=== PATIENT | female | born 1950 | race Caucasian/White ===

== ENCOUNTER → 2018-02-02 | Outpatient (CLI) | payer OTHER, BC ==
[~2018-02-02] MED LIST: ACETAMINOPHEN 325 MG TAB PO PRN; FLUMAZENIL 0.5 MG/5 ML MDV IVP PRN; GADOBUTROL 10 ML VIAL IVP ONE; MIDAZOLAM 2 MG/2 ML VIAL IVP PRN; MIDAZOLAM 2 MG/2 ML VIAL ONE; NALOXONE HCL 0.4 MG/ML INJ IVP PRN; NS 1,000 ML IV SCH; ONDANSETRON 4 MG/2 ML VIAL IVP ONE; ONDANSETRON 4 MG/2 ML VIAL IVP PRN; fentaNYL 100 MCG/2 ML INJ IVP PRN; fentaNYL 100 MCG/2 ML INJ ONE
[2018-02-02 14:33] VITALS: BP 166/75
== END ==
LOC: FIMAGING 10:49
PROVIDERS: ATTEND Neurological Surgery
DX: G20 Parkinson's disease (principal)
CPT/HCPCS: 70552; A9585; J2250; J2405; J3010; 82565-PO

== ENCOUNTER 2018-02-10 05:55 | Inpatient (IN) | payer OTHER, BC ==
--- NOTE | 2018-02-02 10:32 | GHP ---
DATE OF ADMISSION: 02/10/2018 HISTORY OF PRESENT ILLNESS: The patient is a 67-year-old female with Parkinson disease. She 1st noticed symptoms in 2007, and was diagnosed with Parkinson's in 2011. The symptoms began with a right hand tremor. She has tremor, bradykinesia, rigidity, freezing, balance difficulties, REM sleep disorder, orthostatic hypotension. She denies salivation and constipation. Her local neurologist is Dr. Herrera. PAST MEDICAL HISTORY: Parkinson disease. PAST SURGICAL HISTORY: No pertinent surgical history. SOCIAL HISTORY: Patient admits to 1 glass of wine daily. Denies tobacco use. She is with 2 children. She is retired. FAMILY HISTORY: No pertinent neurosurgical family history. ALLERGIES: No known drug allergies. HOME MEDICATIONS: Xanax, Wellbutrin, Sinemet CR, Neurontin, Myrbetriq, MiraLAX , midodrine, Imitrex, ibuprofen, estrogen, Effexor XR. PHYSICAL EXAMINATION: GENERAL: Patient seen, examined, appears in no apparent distress. Mood and affect appropriate. Alert and oriented. HEENT: Pupils equal and reactive. Extraocular movements are intact. Facial expression is symmetrical. Tongue is midline with protrusion. Hearing is grossly intact. Speech is without dysarthria. EXTREMITIES: Muscle strength is well preserved in upper and lower extremities at a 5/5, and sensation is intact to light touch. ASSESSMENT AND PLAN: The patient is a 67-year-old female with Parkinson disease. She had an MRI of the brain from [facility] in July 2017, that reveals microvascular ischemic changes. No acute intracranial findings. She had a neuropsychological evaluation on August 01, 2017, which stated that the patient is a suitable candidate for deep brain stimulation. We discussed the risks, benefits, and alternatives to the surgical intervention including the pre and postop expectations and procedure in great detail. The patient has had on-off testing. She has been deemed a suitable candidate to proceed with deep brain stimulation for Parkinson disease. We will proceed with bilateral DBS with initial placement of the left STN lead for right body first. The patient is agreeable to this treatment plan and has signed consents. All other questions and concerns were addressed and answered. /[id number]/MODL MTDD
[2018-02-10] MEDS ORDERED: CEFUROXIME 1,500 MG in NS 50 ML IV ONE ×2 (06:00→13:00)
[2018-02-10] MEDS ORDERED: LR 1,000 ML IV ONE (06:20)
[2018-02-10] MEDS ORDERED: CHLORHEXIDINE GLUC HIBICLENS 118 ML BTL TP ONE (06:48)
[2018-02-10] MEDS ORDERED: THROMBIN (BOVINE) 20,000 UNIT VIAL TP ONE (06:48)
[2018-02-10] MEDS ORDERED: BUPIVACAINE 0.25% 30 ML SDV ONE (06:48)
[2018-02-10] MEDS ORDERED: GENTAMICIN SULFATE 80 MG/2 ML VIAL ONE ×2 (06:48→12:43)
[2018-02-10] MEDS ORDERED: EPINEPHrine 1 MG/ML INJ ONE (06:49)
[2018-02-10] MEDS ORDERED: POVIDONE-IODINE 30 GM OINTTUBE TP ONE ×2 (06:49→07:38)
--- NOTE | 2018-02-10 07:08 | PDHPUP ---
History & Physical Update H&P update statement: This history and physical update is based on an assessment of the patient which was completed after admission or registration (within 24 hours), but prior to the surgery/procedure. H&P update: H&P reviewed & patient examined, changes noted H&P changes: Dr. Gonzalez discussed in detail with the patient regarding target for DBS. Discussed the pros and cons with a GPI and a STN target. Also had her neurologist involved on the discussion via the phone. Patient and family has decided to proceed with STN as the target.
--- NOTE | 2018-02-10 07:08 | PDANEPAE ---
ANE History of Present Illness 67 yo with parkinsons for DBS ANE Past Medical History - Cardiovascular History Hx Hypertension: No Hx Arrhythmias: No Hx Chest Pain: No Hx Coronary Artery / Peripheral Vascular Disease: No Hx CHF / Valvular Disease: No Hx Palpitations: No Cardiovascular History Comment: Hypotension; - Pulmonary History Hx COPD: No Hx Asthma/Reactive Airway Disease: No Hx Recent Upper Respiratory Infection: No Hx Oxygen in Use at Home: No Hx Sleep Apnea: No Sleep Apnea Screening Result - Last Documented: Negative - Neurologic History Hx Cerebrovascular Accident: No Hx Seizures: No Hx Dementia: No Neurologic History Comment: Parkinsons; - Endocrine History Hx Diabetes: No - Renal History Hx Renal Disorders: No - Liver History Hx Hepatic Disorders: No - Neurological & Psychiatric Hx Hx Neurological and Psychiatric Disorders: Yes Neurological / Psychiatric History Comment: depression; - Cancer History Hx Cancer: No - Congenital Disorder History Hx Congenital Disorders: No - GI History Hx Gastrointestinal Disorders: Yes Gastrointestinal History Comment: ulcerative colitis; recurrent constipation; - Other Health History Other Health History: dry skin; osteoporosis; - Chronic Pain History Chronic Pain: Yes (B Legs;) - Surgical History Prior Surgeries: L Hip; Cottonwood Teeth; ANE Review of Systems Review of systems is: negative Review of Systems: - Exercise capacity METS (RN): 4 METS ANE Patient History - Allergies Allergies/Adverse Reactions: No Known Allergies Allergy (Verified 01/19/18 15:53) - Home Medications Home Medications: Effexor Xr 75 mg PO DAILY 01/19/18 [Last Taken 02/01/18 22:00] Estrogen,Con/M-Progest Acet 0.5 tsp TD DAILY 01/19/18 [Last Taken 02/02/18 07:00 ] Hair, Skin and Nails Softgel 5,000 mcg PO DAILY 01/19/18 [Last Taken 01/28/18] Ibuprofen 200 mg PO QID PRN 01/19/18 [Last Taken 01/31/18] Imitrex 1 tab PO PRN PRN 01/19/18 [Last Taken 02/04/16] Midodrine HCl 5 mg PO TID 01/19/18 [Last Taken 02/02/18 09:00] Miralax 17 gm (*) 17 gm PO PRN 01/19/18 [Last Taken 01/30/18] Myrbetriq 25 mg PO DAILY 01/19/18 [Last Taken 02/01/18 17:00] Neurontin 600 mg PO TID 01/19/18 [Last Taken 02/01/18 20:00] Wellbutrin Sr 150 mg PO DAILY 01/19/18 [Last Taken 02/02/18 08:00] Xanax 0.5 mg PO PRN PRN 01/19/18 [Last Taken 01/30/18] Tylenol 325 mg PO PRN PRN 02/02/18 [Last Taken 02/02/18 07:00] Carbidopa 02/07/18 [Last Taken Unknown] Carbidopa-Levo 25-100 mg Odt 02/07/18 [Last Taken Unknown] - NPO status NPO Since - Liquids (Date): 02/09/18 NPO Since - Liquids (Time): 22:00 NPO Since - Solids (Date): 02/09/18 NPO Since - Solids (Time): 20:00 - Smoking Hx Smoking Status: Never smoked - Family Anes Hx Family Hx Anesthesia Complications: denies ANE Labs/Vital Signs - Vital Signs Height: 172.72 cm Weight: 57.153 kg ANE Physical Exam - Airway Neck exam: FROM Mallampati Score: Class 1 Mouth exam: normal dental/mouth exam - Pulmonary Pulmonary: no respiratory distress - Cardiovascular Cardiovascular: regular rate and rhythym - ASA Status ASA Status: III ANE Anesthesia Plan Anesthesia Plan: MAC
[2018-02-10] MEDS ORDERED: PROPOFOL 200 MG/20 ML VIAL ONE (07:14)
[2018-02-10] MEDS ORDERED: fentaNYL 100 MCG/2 ML INJ ONE ×2 (07:18→13:03)
[2018-02-10 07:19] LABS: INR 0.94 (0.83-1.16); PROTIME(PATIENT) 12.8 SEC (12.0-15.0)
[2018-02-10 07:26] LABS: PLATELET COUNT 255 10^3/uL (150-400)
[2018-02-10] MEDS ORDERED: DEXMEDETOMIDINE HCL 400 MCG in NS 100 ML IV SCH (07:30)
[2018-02-10] MEDS ORDERED: niCARdipine/NACL/200 ML BAG IV ONE (07:38)
[2018-02-10] MEDS ORDERED: PROMETHAZINE HCL 25 MG/ML INJ IVP PRN (13:15)
[2018-02-10] MEDS ORDERED: ONDANSETRON 4 MG/2 ML VIAL IVP PRN ×2 (13:15→13:40)
[2018-02-10] MEDS ORDERED: NALOXONE HCL 0.4 MG/ML INJ IVP PRN (13:15)
[2018-02-10] MEDS ORDERED: fentaNYL 100 MCG/2 ML INJ IVP PRN (13:15)
[2018-02-10] MEDS ORDERED: BISACODYL 10 MG SUPP PR PRN (13:40)
[2018-02-10] MEDS ORDERED: ONDANSETRON DISINTEGRATING 4 MG TAB PO PRN (13:40)
[2018-02-10] MEDS ORDERED: diphenhydrAMINE 25 MG CAP PO PRN (13:40)
[2018-02-10] MEDS ORDERED: MAGNESIUM HYDROXIDE 30 ML UDCUP PO PRN (13:40)
[2018-02-10] MEDS ORDERED: POLYETHYLENE GLYCOL 3350 17 GM PKT PO PRN ×2 (13:40→17:57)
[2018-02-10] MEDS ORDERED: LACTULOSE 20 GM/30 ML UDCUP PO PRN (13:40)
[2018-02-10] MEDS ORDERED: NS 1,000 ML IV SCH (13:45)
--- NOTE | 2018-02-10 13:46 | POSTOPPROG ---
Post Op Note Date of Operation: 02/10/18 Surgeon: Jory Gonzalez Recycling Operator: Tasha Renee PA-C Anesthesia: GET(General Endotracheal) Pre-op Diagnosis: Parkinson's Post-op Diagnosis: Parkinson's Procedure: Left DBS STN lead placement Inf/Abcess present in the surg proc area at time of surgery?: No Depth: Superfical (Skin SQ) EBL: Minimal Plan Plan: 67 yo female s/p left STN DBS lead placement - neuro checks - pain control - PT/OT - advance diet as tolerated - maintain SBP < 140 - postop head CT stable - if head CT stable then transfer to the floor Awake. Alert Following commands Incision with dressing c/d/i
--- NOTE | 2018-02-10 14:05 | GOP ---
DATE OF OPERATION: SURGEON: Jory Gonzalez DO NEUROSURGEON: Jory Gonzalez DO. LONG CHAIN DYEING MACHINE OPERATOR: Michael NGO PREOPERATIVE DIAGNOSIS: Parkinson's disease. POSTOPERATIVE DIAGNOSIS: Parkinson's disease. PROCEDURE PERFORMED: 1. Right deep brain stimulator lead placement with Medtronic [id number] lead to the subthalamic nucleus. 2. Stealth neuronavigation microelectrode recording by JENI Griffith. Please refer to her dictation for microelectrode recording. FINDINGS: SPECIMENS: None. ESTIMATED BLOOD LOSS: 45 mL. INDICATIONS: This is a 67-year-old female with Parkinson's disease who was found to be a good candidate for DBS. She elected to move forward with an STN. She was offered GPI and STN. She elected to move forward with the STN implant. DESCRIPTION OF PROCEDURE: She was identified, consented. Sites were marked, brought to the operating room, anesthetized with local. Hair was clipped with the OR clippers. Skull was cleansed with ChloraPrep using povidone iodine on the pin sites. A Leksell frame was placed stereotactically after anesthetizing with 0.25% Marcaine with epinephrine. The localizer box was placed, and a stealth O-arm to CT was performed fused to the preoperative plan in the [employer] Framelink software. The ACPC distance was 30.13. The X was -11.01, Y of -3.02 , Z of 5.15. The entry point X was -42.14, Y of 32.13, Z of 68.43, corresponding to 26.2 degrees off midsagittal, 61 degrees off midaxial. This corresponded to Leksell frame coordinates of an X of 113, a Y of 92, a Z of 101 , a ring of 55 degrees, and arc of 110.8 degrees. We elected to do a center and anterior tract in this patient. The Leksell frame coordinates were set and triple checked by all providers in the room. She was prepped and draped in the usual sterile fashion. Incision site was marked using Leksell frame coordinates and the cannula, and a half-riley incision was anesthetized with 0.25 % Marcaine with epinephrine. Incision was made with a 10 blade. Hemostasis was obtained with bipolar and Anamaria clips. We used a periosteal elevator to elevate the periosteum. We then marked the bone opening, used the cannula and performed a elevator pilot hole then a 14 mm bur hole, which was verified to be in the appropriate position. Bone edges were waxed. The Stealth Navigus Stimloc device was placed and locked into place with 5 mm Synthes screws. The clipping mechanism was verified to clip and lock. The dura was coagulated and then opened with an 11 blade. We then inserted the center and anterior cannula, plugged the hole with Gelfoam and DuraSeal, and removed the cannula. Internal cannula was then placed with microelectrodes to perform microelectrode recording of the best recording. A PA assist was utilized during this procedure particular during JOSE as there is need for a single provider scrubbed and a single provider performing JOSE resting on the non-sterile field. Again, please refer to the JOSE dictation by Camille Renee of the best recording. The anterior track with some motor driving. We macro stemmed and got no side effects and some therapeutic effect. Elected to place the lead here. We got out of the STN at approximately 1 above target and so elected to place the bottom of the bottom contact at 1 above target. We then tested impedances at all 4 contacts and then tested for side effects as well therapeutic benefit. We got low to no side effects at all contacts. Therapeutic benefit was excellent at contact 2 and contact 1 at approximately 2 V, and so we elected to leave the lead here. We took an x-ray with the bomb sites and placement and performed a stereotactic spin with the Stealth, merged it and indeed our lead ended up approximately 1 to 1.5 mm anterior exactly where we would expect it to be to within 0.5 mm of accuracy. We then retracted the cannulas. Placed the Stimloc and locked the Stimloc, marked the lead, brought the internal stylet out , brought the lead down and out, placed it into the groove, placed the cap over the lead, took another x-ray. The lead had not migrated. We then placed the boot over the lead extension complex, placed extension over the lead extension complex, locked into place with the torque wrench protecting each contact, brought the boot over the lead extension complex, tied it in position with 2-0 silk ties at 2 positions, tunneled posterior with periosteal elevator, anesthetized the stab incision with 0.25% Marcaine with epinephrine. We made a stab incision with an 11 blade and then tunneled posterior to anterior, bringing the lead extension down and out, cutting it at the skin, coiling the lead posterior and around the incision. We took another x-ray. It had not migrated. Copiously irrigated with over a liter of gentamicin-infused saline. Closed the galea with 0 Vicryl pop-offs. The skin was closed with 3-0 running nylon. The wound was dressed with Xeroform and Telfa stapled down. The frame was removed. Head was wrapped, and the patient tolerated procedure well. Again , no complications. FLUIDS: 1500 mL of crystalloid. URINE OUTPUT: Not recorded. DRAINS: None. COMPLICATIONS: None. /[id number]/MODL MTDD
--- NOTE | 2018-02-10 14:20 | GPN ---
DATE OF PROCEDURE: 02/10/2018 PREPROCEDURE DIAGNOSIS: Parkinson disease. POSTPROCEDURE DIAGNOSIS: Parkinson disease. PROCEDURE PERFORMED: Intraoperative functional subcortical mapping by microelectrode recording and s timulation. COMPLICATIONS: None. INDICATIONS FOR PROCEDURE: Determination of optimal electrode lead placement for deep brain stimulat ion therapy for Parkinson disease to the STN. DESCRIPTION OF PROCEDURE: Following the incision on the left, a bur-hole was drilled. The arc was t hen arranged with the following coordinates X 113, Y 92, Z 101, ring 55, arc 110.8. The recording mi croelectrode was then slowly advanced into the brain using a central and anterior tract. There was e vidence of cell bursts above target in both tracts at 10 above and 8.7 in the anterior tract and 7.9 in the center tract. There was evidence of entering the STN at 6.9 above target for the anterior tra ct. There was change in stimulation with extension of the elbow at 3.3 above target and we exited ST N at 1 above target. There was questionable STN activity in the center tract at 4-1/2 above target. We elected to proceed with macrostimulation using the anterior tract and stimulating at 3.3 above ta rget. With stimulation up to 4.0, there was no side effects and there was improved slowness with ope danita and closing her fist. We then elected to proceed with placement of the lead in the anterior tra ct with placing the bottom of the lead at 1 above target. With test stimulation at 0- patient had no side effects up to 3.5 with minimal improvement in Parkinson's symptoms. At 1- patient had no side effects up to 3.5 with improved bradykinesias, at 2- patient had no side effects up to 3.5 with impro crystal bradykinesia starting at 2.0, amplitude, at 3- patient had no side effects up to 3.5 with questio nable tingling in her right leg from knee to ankle at 3.0 amplitude. With these recordings and test stimulation obtained, we elected to place the lead in this location with the anterior tract with the bottom of the lead at 1 above target. The patient tolerated the surgery well and was transferred to the floor for further observation and pain control. /[id number]/MODL
[2018-02-10] MEDS ORDERED: DEXMEDETOMIDINE HCL 400 MCG in NS 100 ML IV ONE (14:30)
--- NOTE | 2018-02-10 15:28 | PDMN ---
Medical Necessity Medical necessity: Mcare IP only surgery; cpt 22578 Implantation of Neurostimulator (R Deep Brain Stimulator Lead Placement)
[2018-02-10] MEDS: CEFUROXIME 1,500 MG in NS 50 ML IV SCH ×2 (15:47→21:33)
[2018-02-10] MEDS: ACETAMINOPHEN 325 MG TAB PO PRN (15:50)
--- NOTE | 2018-02-10 17:37 | POSTANESTH ---
Post Anesthetic Evaluation Cardiovascular Status: Normal, Stable Respiratory Status: Normal, Stable Level of Consciousness/Mental Status: Can Participate in Eval, Mildly Sleepy, Arousable Pain Control: Adequate, Prn Tx Ordered Nausea/Vomiting Control: Adequate, Prn Tx Ordered Complications Possibly Related to Anesthesia: None Noted
[2018-02-10] MEDS ORDERED: ALPRAZolam 0.5 MG TAB PO PRN (17:57)
[2018-02-10] MEDS ORDERED: DOCUSATE SODIUM 100 MG CAP PO PRN (17:57)
[2018-02-10] MEDS ORDERED: SUMAtriptan 25 MG TAB PO PRN (17:57)
[2018-02-10] MEDS ORDERED: NON-FORMULARY NEW DRUG (Mirabegron [Myrbetriq] 25 MG) PO SCH (18:00)
[2018-02-10] MEDS ORDERED: CARBIDOPA/LEVODOPA 25 MG/100 MG TAB PO SCH (18:00)
[2018-02-10] MEDS: GABAPENTIN 100 MG CAP PO SCH (18:45)
[2018-02-10] MEDS: HYDROCODONE/APAP 5/325 TAB PO PRN ×2 (18:47→23:09)
[2018-02-10] MEDS: CARBIDOPA 25 MG PO SCH (18:49)
[2018-02-10] MEDS: MIDODRINE HCL 5 MG TAB PO SCH (18:50)
[2018-02-10] MEDS ORDERED: VENLAFAXINE XR 75 MG CAP PO SCH (21:00)
[2018-02-10] MEDS: SENNOSIDES/DOCUSATE SODIUM TAB PO SCH (21:21)
[2018-02-10] MEDS: hydrALAZINE 20 MG/ML VIAL IVP PRN (21:26)
[2018-02-10] MEDS: LABETALOL HCL 5 MG/ML 20 ML MDV IV PRN (22:51)
[2018-02-11] MEDS: HYDROCODONE/APAP 5/325 TAB PO PRN ×2 (03:26→11:41)
[2018-02-11] MEDS: hydrALAZINE 20 MG/ML VIAL IVP PRN (03:28)
[2018-02-11] MEDS: LABETALOL HCL 5 MG/ML 20 ML MDV IV PRN ×2 (05:21→06:35)
[2018-02-11] MEDS: ACETAMINOPHEN 325 MG TAB PO PRN (05:36)
[2018-02-11] MEDS ORDERED: buPROPion SR 150 MG TAB PO SCH (09:00)
[2018-02-11] MEDS: SENNOSIDES/DOCUSATE SODIUM TAB PO SCH (09:05)
[2018-02-11] MEDS: CARBIDOPA/LEVODOPA 25 MG/100 MG TAB PO SCH ×2 (09:06→13:10)
[2018-02-11] MEDS: CARBIDOPA 25 MG PO SCH ×2 (09:09→13:10)
--- NOTE | 2018-02-11 10:42 | SOAPPROG ---
SOAP Progress Note Assessment/Plan: Assessment: POD #1 sp left DBS placement Doing well this AM Post op CTH stable without hemorrhage Plan: Hold Midodrine this AM due to hypertension overnight. Continue to recheck manually and will restart Midodrine if she becomes hypotensive. CPM this AM with PT/OT Observe until 1200 and if BP and pain controlled will DC to home with Keep Head wrap in place and remove per DC instructions. 02/11/18 10:49 Subjective: sitting at EOB, doing well this AM with no new issues. She slept poorly last night due to STACY and elevated BP. She states she takes Midodrine to keep her BP up due to her history of orthostatic hypotension. Objective: Vital Signs Temp Pulse Resp BP Pulse Ox 36.8 C 78 14 118/68 91 L 02/11/18 08:00 02/11/18 08:00 02/11/18 08:00 02/11/18 08:00 02/11/18 08:00 Laboratory Results 02/10/18 06:30 02/10/18 06:30 02/10/18 02/11/18 02/12/18 05:59 05:59 05:59 Intake Total 2232 Output Total 1460 200 Balance 772 -200 PT 12.8 SEC (12.0-15.0) 02/10/18 06:30 INR 0.94 (0.83-1.16) 02/10/18 06:30 Neuro: A+ox 4 follows commands, Speech clear, EOMI, PERRLA ambulatory Dressing: CDI ICD10 Worksheet Patient Problems: Problems Problem Status Onset Parkinson disease Acute - ICD10 Problem Qualifiers (1) Parkinson disease
--- NOTE | 2018-02-11 11:00 | ASDISCHSUM ---
Discharge Information Plan Status:Home with No Needs Medically Cleared to Leave: Discharge Date: CM D/C Disposition:Home, Routine, Self-Care ADT D/C Disposition:Home, Routine, Self-Care Projected Discharge Date: Transportation at D/C: Discharge Delay Reason: Follow-Up Date: Discharge Slot: Final Diagnosis: Placement Information Patient Contact Information Contact Name:ZACARIAS Relationship: Address:[address] Work Phone: City:[facility] Phone: State/Zip Code:[place] [address] Email: Financial Information Financial Class:Medicare Primary Plan Desc:MEDICARE INPATIENT Primary Plan Number:[id number] Secondary Plan Desc:BC OUT OF STATE [facility] Secondary Plan Number:[id number] Assessment Information LACE LACE Length of stay for Answers: Less than 1 day current admission Acuity / Level of Answers: Yes Care: Did the patient have an inpatient admission? Comorbidities - select Answers: Other Notes: Parkinsons all that apply # of Emergency department Answers: 0 visits in the last 6 months Score: 4 Date Signed: 02/11/2018 10:58 AM Electronically Signed By:Mary Swann Intervention Information
[2018-02-11 11:30] VITALS: BP 138/72
[2018-02-11] MEDS: MIDODRINE HCL 5 MG TAB PO SCH (13:08)
[2018-02-11] MEDS: GABAPENTIN 100 MG CAP PO SCH (13:11)
[2018-02-13] MEDS ORDERED: ENOXAPARIN 40 MG/0.4 ML SYR SC SCH (09:00)
--- NOTE | 2018-02-16 09:51 | GDS ---
ADMISSION DIAGNOSIS: Parkinson disease. DISCHARGE DIAGNOSIS: Parkinson disease. PROCEDURE: Right deep brain stimulator lead placement to the STN. HOSPITAL COURSE: The patient is a 67-year-old female with Parkinson disease who was found to be a go od candidate for deep brain stimulation. She underwent surgery on February 10, 2018, by Dr. Jory sanders with placement of right deep brain stimulator lead to the STN. The patient tolerated the surgery well without complication and was transferred to the floor for further observation and pain control. Postoperative head CT was completed and demonstrated no acute intracranial hemorrhage. The followi ng day, she was seen by Physical and Occupational Therapy. Once she was tolerating a diet, voiding w ithout difficulty, medically stable, and pain controlled, she was deemed suitable for discharge. She was discharged to home on February 11, 2018. DISCHARGE INSTRUCTIONS: Patient was asked to follow up with Dr. Jory Gonzalez in 2 weeks for suture r emoval and wound check. She is to refrain from strenuous activity and lifting more than 10 pounds. She is cleared to shower and get the incision wet with soap and water 3 days from surgery. She was i nstructed to take Tylenol as needed for pain relief. /[id number]/MODL
== END 2018-02-11 13:28 | disposition home or self-care (01) | DRG 27 ==
LOC: F3N 05:55
PROVIDERS: ADMIT Neurological Surgery; ATTEND Neurological Surgery
PROC: 8E09XBZ Computer Assisted Procedure of Head and Neck Region (ICD-10-PCS; principal; 2018-02-10 07:15)
PROC: 00H00MZ Insertion of Neurostimulator Lead into Brain, Open Approach (ICD-10-PCS; principal; 2018-02-10 07:15)
DX: G20 Parkinson's disease (principal)
CPT/HCPCS: 97161-GP; 97165-GO; C1713; G8978-GP-CI; G8979-GP-CI; G8980-GP-CI; G8987-GO-CI; G8988-GO-CI; G8989-GO-CI; J0171; J0360; J0697; J1580; J2270; J2405; J2704; J3010

== ENCOUNTER 2018-03-10 06:21 | Inpatient (IN) | payer OTHER, BC ==
[~2018-03-10 06:21] MED LIST changes: -ACETAMINOPHEN 325 MG TAB PO PRN; +CEFUROXIME 1,500 MG in NS 50 ML IV ONE; -FLUMAZENIL 0.5 MG/5 ML MDV IVP PRN; -GADOBUTROL 10 ML VIAL IVP ONE; -MIDAZOLAM 2 MG/2 ML VIAL IVP PRN; -MIDAZOLAM 2 MG/2 ML VIAL ONE; -NALOXONE HCL 0.4 MG/ML INJ IVP PRN; -NS 1,000 ML IV SCH; -ONDANSETRON 4 MG/2 ML VIAL IVP ONE; -ONDANSETRON 4 MG/2 ML VIAL IVP PRN; -fentaNYL 100 MCG/2 ML INJ IVP PRN; -fentaNYL 100 MCG/2 ML INJ ONE
[2018-03-10] MEDS ORDERED: CHLORHEXIDINE GLUC HIBICLENS 118 ML BTL TP ONE (06:34)
[2018-03-10] MEDS ORDERED: BUPIVACAINE 0.25% 30 ML SDV ONE (06:34)
[2018-03-10] MEDS ORDERED: EPINEPHrine 1 MG/ML INJ ONE (06:34)
[2018-03-10] MEDS ORDERED: THROMBIN (BOVINE) 20,000 UNIT SPRAY TP ONE (06:34)
[2018-03-10] MEDS ORDERED: POVIDONE-IODINE 30 GM OINTTUBE TP ONE (06:34)
[2018-03-10] MEDS ORDERED: GENTAMICIN SULFATE 80 MG/2 ML VIAL ONE (06:34)
[2018-03-10] MEDS ORDERED: LR 1,000 ML IV ONE (07:22)
--- NOTE | 2018-03-10 07:57 | PDHPUP ---
History & Physical Update H&P update statement: This history and physical update is based on an assessment of the patient which was completed after admission or registration (within 24 hours), but prior to the surgery/procedure. H&P update: H&P reviewed & patient examined, no change in patient's condition since H&P completed
--- NOTE | 2018-03-10 08:14 | PDANEPAE ---
ANE History of Present Illness parkinsons dz for DBS stage 1 ANE Past Medical History - Cardiovascular History Hx Hypertension: No Hx Arrhythmias: No Hx Chest Pain: No Hx Coronary Artery / Peripheral Vascular Disease: No Hx CHF / Valvular Disease: No Hx Palpitations: No Cardiovascular History Comment: neurogenic hypotension - Pulmonary History Hx COPD: No Hx Asthma/Reactive Airway Disease: No Hx Recent Upper Respiratory Infection: No Hx Oxygen in Use at Home: No Hx Sleep Apnea: No Sleep Apnea Screening Result - Last Documented: Negative - Neurologic History Hx Cerebrovascular Accident: No Hx Seizures: No Hx Dementia: No Neurologic History Comment: parkinson's disease. bilateral leg neuropathy. multilevel spondylosis - Endocrine History Hx Diabetes: No Obesity: no - Renal History Hx Renal Disorders: No - Liver History Hx Hepatic Disorders: No - Neurological & Psychiatric Hx Hx Neurological and Psychiatric Disorders: Yes Neurological / Psychiatric History Comment: depression - Cancer History Hx Cancer: No - Congenital Disorder History Hx Congenital Disorders: No - GI History Hx Gastrointestinal Disorders: Yes Gastrointestinal History Comment: constipation - Other Health History Other Health History: wears glasses - Chronic Pain History Chronic Pain: Yes (bilat legs) - Surgical History Prior Surgeries: left hip fracture repair ANE Review of Systems Review of Systems: - Exercise capacity METS (RN): 4 METS ANE Patient History - Allergies Allergies/Adverse Reactions: No Known Allergies Allergy (Verified 01/19/18 15:53) - Home Medications Home medications: home medication list seen and reviewed Home Medications: ALPRAZolam [Xanax 0.5 MG (*)] 0.5 mg PO DAILY PRN 02/10/18 [Last Taken Unknown] Carbidopa 25 mg PO TID@02/10/18 [Last Taken 03/09/18] Carbidopa/Levodopa [Carbidopa-Levodopa 25-100 Tab] 1 each PO DAILY@18 02/10/18 [ Last Taken 03/09/18] Carbidopa/Levodopa [Carbidopa-Levodopa 25-100 Tab] 2.5 each PO BID@ [Last Taken 03/09/181999] Docusate Sodium [Colace 100 MG (*)] 100 mg PO DAILY PRN 02/10/18 [Last Taken Unknown] Estrogen/Progesterone Cream 1 pankaj TP DAILY 02/10/18 [Last Taken 03/09/18] Gabapentin [Neurontin 100 MG (*)] 300 mg PO QID 02/10/18 [Last Taken 03/09/18 20 :00] Midodrine HCl 5 mg PO TID@,,02/10/18 [Last Taken 03/09/18] Mirabegron [Myrbetriq] 25 mg PO DAILY@18 02/10/18 [Last Taken 03/09/18] Polyethylene Glycol 3350 [Miralax 17 gm (*)] 17 gm PO DAILY PRN 02/10/18 [Last Taken 03/09/18] SUMAtriptan [Imitrex 25 MG (*)] 25 mg PO DAILY PRN 02/10/18 [Last Taken Unknown] Venlafaxine Xr [Effexor Xr 75MG (*)] 75 mg PO HS 02/10/18 [Last Taken 03/09/18] buPROPion SR [Wellbutrin 150mg SR (*)] 150 mg PO DAILY 02/10/18 [Last Taken 12/17] - NPO status NPO Since - Liquids (Date): 03/09/18 NPO Since - Liquids (Time): 21:00 NPO Since - Solids (Date): 03/09/18 NPO Since - Solids (Time): 18:00 - Anes Hx Anes Hx: no prior problems - Smoking Hx Smoking Status: Never smoked - Family Anes Hx Family Hx Anesthesia Complications: none ANE Labs/Vital Signs - Vital Signs Blood Pressure: 184/97 Heart Rate: 72 Respiratory Rate: 16 O2 Sat (%): 96 Height: 172.72 cm Weight: 57.153 kg ANE Physical Exam - Airway Neck exam: FROM Mallampati Score: Class 2 Mouth exam: normal dental/mouth exam - Pulmonary Pulmonary: no respiratory distress - Cardiovascular Cardiovascular: regular rate and rhythym - ASA Status ASA Status: III ANE Anesthesia Plan Anesthesia Plan: MAC
--- NOTE | 2018-03-10 10:29 | POSTANESTH ---
Post Anesthetic Evaluation Cardiovascular Status: Normal, Stable Respiratory Status: Normal, Stable Level of Consciousness/Mental Status: Can Participate in Eval, Alert and Oriented Pain Control: Adequate, Prn Tx Ordered Nausea/Vomiting Control: Adequate, Prn Tx Ordered Complications Possibly Related to Anesthesia: None Noted
[2018-03-10] MEDS ORDERED: ONDANSETRON 4 MG/2 ML VIAL IVP PRN ×2 (11:19→11:43)
[2018-03-10] MEDS ORDERED: HYDROCODONE/APAP 5/325 TAB PO PRN (11:19)
[2018-03-10] MEDS ORDERED: ALBUTEROL 3 ML DEYVIAL IH PRN (11:19)
[2018-03-10] MEDS ORDERED: LR 500 ML IV PRN (11:19)
[2018-03-10] MEDS ORDERED: fentaNYL 100 MCG/2 ML INJ IVP PRN (11:19)
[2018-03-10] MEDS ORDERED: oxyCODONE IR 5 MG TAB PO PRN (11:19)
[2018-03-10] MEDS ORDERED: ACETAMINOPHEN 500 MG TAB PO PRN (11:19)
[2018-03-10] MEDS ORDERED: NALOXONE HCL 0.4 MG/ML INJ IVP PRN (11:19)
[2018-03-10] MEDS ORDERED: ALPRAZolam 0.5 MG TAB PO PRN (11:41)
[2018-03-10] MEDS ORDERED: POLYETHYLENE GLYCOL 3350 17 GM PKT PO PRN (11:41)
[2018-03-10] MEDS ORDERED: DOCUSATE SODIUM 100 MG CAP PO PRN (11:41)
[2018-03-10] MEDS ORDERED: ACETAMINOPHEN 325 MG TAB PO PRN (11:43)
[2018-03-10] MEDS ORDERED: LACTULOSE 20 GM/30 ML UDCUP PO PRN (11:43)
[2018-03-10] MEDS ORDERED: BISACODYL 10 MG SUPP PR PRN (11:43)
[2018-03-10] MEDS ORDERED: MAGNESIUM HYDROXIDE 30 ML UDCUP PO PRN (11:43)
[2018-03-10] MEDS ORDERED: NS W/ 20 KCl/L 1,000 ML IV SCH (11:45)
--- NOTE | 2018-03-10 11:49 | POSTOPPROG ---
Post Op Note Date of Operation: 03/10/18 Surgeon: Jory Gonzalez Passenger Service Supervisor: Tasha Renee PA-C Anesthesia: IV Sedation, Local (Specify) Pre-op Diagnosis: Parkinson's Post-op Diagnosis: Parkinson's Procedure: Right STN DBS lead placement Inf/Abcess present in the surg proc area at time of surgery?: No Depth: Deep Incisional (Fascial) EBL: Minimal Plan Plan: 67 yo female s/p right STN DBS lead placement - neuro checks - maintain SBP < 140 - postop head CT pending - PT/OT - pain control - to floor if head CT stable - plan for home tomorrow Exam Seen in recovery. PERRL. EOMI Following commands Strength full Incision c/d/i
--- NOTE | 2018-03-10 12:33 | GPN ---
DATE OF PROCEDURE: 03/10/2018 PREPROCEDURE DIAGNOSIS: Parkinson disease. POSTPROCEDURE DIAGNOSIS: Parkinson disease. PROCEDURE PERFORMED: Intraoperative functional subcortical mapping by microelectrode recording and s timulation. COMPLICATIONS: None. INDICATIONS FOR PROCEDURE: Determination of optimal electrode lead placement for deep brain stimulat ion therapy for Parkinson disease to the STN. DESCRIPTION OF PROCEDURE: Following the incision on the right a bur hole was drilled. The arc was t hen arranged with the following coordinates: X 92, Y 102, Z 106.5, ring 57, arc 64.7. The recording microelectrode was then slowly advanced into the brain using a central tract. There was evidence of cell bursts above target at 10 and 14. There was evidence of entering STN at 4.8 above target. We found the recording at this tract to be weak and thus proceeded with further microelectrode mapping w ith a lateral and posterior tract. There was evidence of entering the STN in the posterior tract nadege und 5 above target and exiting around 3 below target. We elected to proceed with macro stimulation. At 3 above target, patient had no side effects up to 5.0 with no improvement and bradykinesias. At target, patient had no side effects up to 5.0 with some improvement in her symptoms. At 2.5 below ta rget, patient had no side effects up to 5.0 with marked improvement and bradykinesias. With this mac ro stimulation, we elected to proceed with test stimulation and placed the lead in the posterior trac t at 3 below target. At 0-, she had no side effects up to 3.5, and possible questionable improvement in her rapid hand movements. At 1-, patient had no side effects up to 3.5, and had marked improveme nt in her hand movements and bradykinesia at 2.0 amplitude. At 2- and 3-, patient had no side effect s up to 3.5. With these recordings and test stimulation obtained, we elected to place the lead in th is location at the posterior tract with the bottom of the lead at 3 below target. The patient tolera nikita the surgery well and was transferred to the floor for further neurological checks and pain contro l. /[id number]/MODL
--- NOTE | 2018-03-10 12:43 | GOP ---
DATE OF OPERATION: SURGEON: Jory Gonzalez DO NEUROSURGEON: Jory Gonzalez DO. TOILET PRODUCTS MOLDER: Camille Renee PA-C. PREOPERATIVE DIAGNOSIS: Parkinson disease. POSTOPERATIVE DIAGNOSIS: Parkinson disease. PROCEDURE PERFORMED: 1. Right deep brain stimulator lead placement to the subthalamic nucleus. 2. Neuronavigation. FINDINGS: SPECIMENS: None. ESTIMATED BLOOD LOSS: 30 mL. INDICATIONS: This is a 67-year-old female with a left-sided deep brain stimulator lead placed to the STN approximately 1 month ago, returning for the right-sided STN placement. DESCRIPTION OF PROCEDURE: She was identified, consented. Sites were marked. Brought to the operati ng room. Anesthetized under local. Hair was clipped with the OR clippers. Skin was cleansed with C hloraPrep. We anesthetized the pin sites with 0.25% Marcaine with epinephrine using povidone iodine on the pin sites. We placed the Leksell frame stereotactically, then performed a stereotactic spin w ith a localizer box, merged this as the registration to the Stealth and mirrored the lead on the othe r side. On direct targeting, it looked as if maybe the STN was a little bit posterior to this; howev er, the imaging was suboptimal there and so we elected to mirror and run a single tract. The initial target was an X of 9.85, a Y of 0.17, a Z of 6.61, an AC-PC distance of 30.13, an entry point of 42. 33, XY of 36.04, Z of 65.86. This corresponded to 28.7 degrees off mid sagittal and 58.8 degrees off mid axial. This corresponded to Leksell frame coordinates of an X of 92, a Y of 102, a Z of 106.5, a ring of 57 degrees, an arc of 64.7 degrees. These were all set and triple checked by the providers in the room after having been prepped and draped in the usual sterile fashion. Incision site was ma rked using the cannula. A half-riley incision was anesthetized with 0.5% Marcaine with epinephrine. Incision was made with a 10 blade. Periosteal elevator was used to elevate the periosteum using the Anamaria clips. We then obtained hemostasis. We then marked the bone incision, created a furnace utility operator hole an d then a 14 mm silvina hole. The bone edges were waxed. The Navigus was locked down with 5 mm Synthes screws, and the clipping mechanism was verified to clip and lock. The dura was opened sharply with a n 11 blade and coagulated with the bipolar, and then we inserted the cannula, placed Gelfoam and Dura Seal, placed a microelectrode, performed microelectrode recording. We did not get robust recordings here, and I elected to do a lateral and posterior tract. Please refer to JOSE dictation by Camille Renee PA-C. We drove back up to the top. We removed the Gelfoam and DuraSeal, placed the stylet in the center cannula, leaving it in place, placed the posterior cannula, removed the internal stylet, plugged the hole with Gelfoam and DuraSeal, placed microelectrodes in the latera l posterior and performed microelectrode recording. We got STN in both of these sites; however, the posterior seemed to be the best. We had difficulty with motor driving. This was similar to the othe r side. We macro-stimmed at target 2.5 blow and got excellent effects with no side effects at the po sterior tract, so elected to test the lead here, leaving the bottom contact at 3 below targ et. This is what we expected based upon direct targeting, it should be mentioned. We then tested ea ch contact. We got excellent control, contact being contact 1, no side effects at all. W e elected to leave the lead here. We retracted the cannula, clipped and locked the locking mechanism , marked the lead, took an x-ray with the [facility] sites, performed a stereotactic spin to [facility], and the merge appeared that it was exactly where we would expect it to be. We then brought the stylet out, brought the lead down and out of the cannula, placed it into the Navigus, locked the cap, took anothe r x-ray. It had not migrated. Placed the boot over the lead extension complex, placed the lead exte nsion over and locked them into place with the torque wrench, protecting each contact. Brought the b oot back over the lead extension complex, tied it in position with 2-0 silk ties at 2 positions. Michael neled posteriorly with a periosteal elevator, anesthetized the stab incision posteriorly with 0.5% Ma rcaine with epinephrine. A stab incision was made with an 11 blade, tunneled posterior to anterior, brought the lead extension down and out, cutting it at the skin, coiling the lead posterior and aroun d the incision. Took a final x-ray with the bomb sites in place. It had not migrated. Copiously ir rigated with over a liter of gentamicin-infused saline. Closed the galea with 2-0 Vicryl pop-offs, t he skin with a 3-0 running nylon. Wound was dressed with Xeroform and Telfa stapled down. The frame was removed. Head was placed in a gauze head of sales. Patient tolerated procedure well. No complic ations. FLUIDS: 600 mL crystalloid. URINE OUTPUT: Not recorded. DRAINS: None. COMPLICATIONS: None. /[id number]/MODL
[2018-03-10] MEDS ORDERED: CEFUROXIME 1,500 MG in NS 50 ML IV SCH (14:00)
[2018-03-10] MEDS: HYDROCODONE/APAP 5/325 TAB PO PRN ×3 (14:44→23:36)
[2018-03-10] MEDS: CARBIDOPA/LEVODOPA 25 MG/100 MG TAB PO SCH (14:54)
[2018-03-10] MEDS: GABAPENTIN 100 MG CAP PO SCH ×3 (16:11→21:15)
[2018-03-10] MEDS: MIDODRINE HCL 5 MG TAB PO SCH ×2 (16:11→18:39)
--- NOTE | 2018-03-10 17:13 | PDMN ---
Medical Necessity Medical necessity: [facility] IP only surgery; cpt 21839 Implantation of Neurostimulator (Stage 1 Deep Brain Lead Placement)
[2018-03-10] MEDS: CEFUROXIME 1,500 MG in NS 50 ML IV SCH (17:21)
[2018-03-10] MEDS: CARBIDOPA 25 MG PO SCH ×2 (17:45→18:37)
[2018-03-10] MEDS ORDERED: (Mirabegron [Myrbetriq] 25 MG) PO SCH (18:00)
[2018-03-10] MEDS ORDERED: CARBIDOPA/LEVODOPA 25 MG/100 MG TAB PO SCH (18:00)
[2018-03-10] MEDS ORDERED: PROMETHAZINE HCL 25 MG/ML INJ IVP PRN (18:39)
[2018-03-10] MEDS ORDERED: SCOPOLAMINE HYDROBROMIDE 1 MG/3 DAYS PATCH TD SCH (18:45)
[2018-03-10] MEDS: hydrALAZINE 20 MG/ML VIAL IVP PRN (19:35)
[2018-03-10] MEDS ORDERED: VENLAFAXINE XR 75 MG CAP PO SCH (21:00)
[2018-03-11] MEDS: CEFUROXIME 1,500 MG in NS 50 ML IV SCH (00:47)
[2018-03-11] MEDS: hydrALAZINE 20 MG/ML VIAL IVP PRN ×2 (02:30→08:06)
[2018-03-11] MEDS: GABAPENTIN 100 MG CAP PO SCH (05:39)
[2018-03-11] MEDS: CARBIDOPA/LEVODOPA 25 MG/100 MG TAB PO SCH (07:53)
[2018-03-11] MEDS: MIDODRINE HCL 5 MG TAB PO SCH (08:00)
[2018-03-11 08:14] VITALS: BP 143/77
--- NOTE | 2018-03-11 08:50 | NEUSURGPN ---
Assessment/Plan: 67 yo female s/p right STN DBS lead placement POD#1 - neuro checks - maintain SBP < 140 - postop head CT is stable - PT/OT - pain control - DC to home today -Call NS with any issues Subjective: Pt resting in bed, feeling good overall Objective: AAOx3 NAD VSS MAEx4 Motor 5/5 BUE/BLE Head wrap on - CDI Urinary Catheter in Place: No Neurosurgery Physical Exam - Vitals, I&O, Labs I and O 03/10/18 03/11/18 03/12/18 05:59 05:59 05:59 Intake Total 3255 Output Total 630 Balance 2625 Weight 55.338 kg Intake: Oral (ml) 715 IV Intake (ml) 1500 IV Infused (ml) 1040 Cefuroxime 1,500 mg In Ns 55 50 ml @ 200 mls/hr IV Q8H LAITH Rx#:[id number] NS W/ 20 KCl/L 1,000 ml @ 985 100 mls/hr IV CONT LAITH Rx#:[id number] Output: Urine (ml) 600 Toilet 600 Estimated Blood Loss (ml) 30 Other: Number of Voids Toilet 1 Vital Signs Temp Pulse Resp BP Pulse Ox 37.1 C 97 14 143/77 H 93 03/11/18 08:00 03/11/18 08:00 03/11/18 08:00 03/11/18 08:00 03/11/18 08:00 ICD10 Worksheet Patient Problems: Problems Problem Status Onset Parkinson disease Acute
[2018-03-11] MEDS ORDERED: buPROPion SR 150 MG TAB PO SCH (09:00)
[2018-03-11] MEDS: CARBIDOPA 25 MG PO SCH (09:46)
[2018-03-13] MEDS ORDERED: PATCH REMOVAL 1 EA PATCH TD ONE (18:45)
--- NOTE | 2018-03-15 12:10 | GDS ---
ADMITTING DIAGNOSIS: Parkinson disease. DISCHARGE DIAGNOSIS: Parkinson disease. PROCEDURE: Right deep brain stimulator lead placement to the STN. HOSPITAL COURSE: The patient is a 67-year-old female with Parkinson disease who was deemed a suitabl e candidate for a bilateral deep brain stimulation. She underwent placement of the right DBS lead to the STN on March 10, 2018, by Dr. Jory Gonzalez without any complications. She was transferred to the floor for further neurological checks and pain control. Postoperative head CT revealed no eviden ce of acute intracranial hemorrhage. She was seen by Physical and Occupational therapy. On the foll owing day, she was tolerating a diet, voiding without difficulty, pain controlled, and medically stab le and thus, she was deemed suitable for discharge. She was discharged to home on March 11. DISCHARGE MEDICATIONS: Include: Tramadol 50 mg 1 tablet every 6 hours as needed for pain. DISCHARGE INSTRUCTIONS: Patient is to follow up with Dr. Jory Gonzalez in 2 weeks for suture removal and wound check. /[id number]/MODL
== END 2018-03-11 10:27 | disposition home or self-care (01) | DRG 27 ==
LOC: F3E 06:21 → F3N 16:03
PROVIDERS: ADMIT Neurological Surgery; ATTEND Neurological Surgery
DX: G20 Parkinson's disease (principal)
CPT/HCPCS: 97116-GP; 97161-GP; C1713; G8978-GP-CJ; G8979-GP-CJ; G8980-GP-CJ; J0171; J0360; J0697; J1580; J2405; J2550

== ENCOUNTER 2018-03-31 06:45 | Day surgery (SDC) | payer OTHER, BC ==
[~2018-03-31 06:45] MED LIST changes: -CEFUROXIME 1,500 MG in NS 50 ML IV ONE; +DEXMEDETOMIDINE HCL 200 MCG in NS 50 ML IV ONE; +HYDROCODONE/APAP 5/325 TAB ONE; +LIDOCAINE 2% 5 ML SDV ONE; +PROPOFOL 200 MG/20 ML VIAL ONE; +fentaNYL 100 MCG/2 ML INJ ONE
[2018-03-31] MEDS ORDERED: ceFAZolin 2 GM/DEXTROSE 100 ML IV ONE (07:12)
[2018-03-31] MEDS ORDERED: LIDOCAINE 1% 2 ML INJ ID PRN (07:13)
[2018-03-31] MEDS ORDERED: LR 1,000 ML IV ONE (07:13)
[2018-03-31] MEDS ORDERED: LIDOCAINE 1% 300 MG/30 ML SDV ONE (07:43)
[2018-03-31] MEDS ORDERED: CHLORHEXIDINE GLUC HIBICLENS 118 ML BTL TP ONE ×2 (07:43→09:27)
[2018-03-31] MEDS ORDERED: BUPIVACAINE/EPI 0.25% 30 ML SDV ONE (07:44)
[2018-03-31] MEDS ORDERED: GENTAMICIN SULFATE 80 MG/2 ML VIAL ONE ×2 (07:44→09:28)
[2018-03-31] MEDS ORDERED: PROPOFOL/EMULSION 500 MG/50 ML BOTTLE IV ONE (08:15)
[2018-03-31] MEDS ORDERED: fentaNYL 100 MCG/2 ML INJ ONE ×3 (08:16→11:36)
[2018-03-31] MEDS ORDERED: MIDAZOLAM 2 MG/2 ML VIAL ONE (08:29)
[2018-03-31] MEDS ORDERED: MIDAZOLAM 2 MG/2 ML VIAL IVP ONE ×2 (08:31→08:45)
--- NOTE | 2018-03-31 08:31 | PDANEPAE ---
ANE History of Present Illness 67 year old female for stage 2 Deep Brain Stimulation implant for Parkinson's Disease. ANE Past Medical History - Cardiovascular History Hx Hypertension: No Hx Arrhythmias: No Hx Chest Pain: No Hx Coronary Artery / Peripheral Vascular Disease: No Hx CHF / Valvular Disease: No Hx Palpitations: No Cardiovascular History Comment: Hypotension; - Pulmonary History Hx COPD: No Hx Asthma/Reactive Airway Disease: No Hx Recent Upper Respiratory Infection: No Hx Oxygen in Use at Home: No Hx Sleep Apnea: No Sleep Apnea Screening Result - Last Documented: Negative - Neurologic History Hx Cerebrovascular Accident: No Hx Seizures: No Hx Dementia: No Neurologic History Comment: Parkinsons; - Endocrine History Hx Diabetes: No - Renal History Hx Renal Disorders: No - Liver History Hx Hepatic Disorders: No - Neurological & Psychiatric Hx Hx Neurological and Psychiatric Disorders: Yes Neurological / Psychiatric History Comment: depression; - Cancer History Hx Cancer: No - Congenital Disorder History Hx Congenital Disorders: No - GI History Hx Gastrointestinal Disorders: Yes Gastrointestinal History Comment: ulcerative colitis; recurrent constipation; - Other Health History Other Health History: dry skin; osteoporosis; - Chronic Pain History Chronic Pain: Yes (B Legs;) - Surgical History Prior Surgeries: L Hip; Revere Teeth; ANE Review of Systems Review of systems is: negative Review of Systems: - Exercise capacity METS (RN): 4 METS ANE Patient History - Allergies Allergies/Adverse Reactions: No Known Allergies Allergy (Verified 01/19/18 15:53) - Home Medications Home Medications: ALPRAZolam [Xanax 0.5 MG (*)] 0.5 mg PO DAILY PRN 02/10/18 [Last Taken 03/01/18] Carbidopa 25 mg PO TID@02/10/18 [Last Taken 03/30/18] Carbidopa/Levodopa [Carbidopa-Levodopa 25-100 Tab] 1 each PO DAILY@18 02/10/18 [ Last Taken 03/30/18] Carbidopa/Levodopa [Carbidopa-Levodopa 25-100 Tab] 2.5 each PO BID@ [Last Taken 03/30/18] Estrogen/Progesterone Cream 1 pankaj TP DAILY 02/10/18 [Last Taken 03/30/18] Gabapentin [Neurontin 100 MG (*)] 300 mg PO QID 02/10/18 [Last Taken 03/30/18] Midodrine HCl 5 mg PO TID@08,,18 02/10/18 [Last Taken 03/30/18] Mirabegron [Myrbetriq] 25 mg PO DAILY@18 02/10/18 [Last Taken 03/30/18] Polyethylene Glycol 3350 [Miralax 17 gm (*)] 17 gm PO DAILY PRN 02/10/18 [Last Taken 03/09/18] SUMAtriptan [Imitrex 25 MG (*)] 25 mg PO DAILY PRN 02/10/18 [Last Taken 04/30/16 ] Venlafaxine Xr [Effexor Xr 75MG (*)] 75 mg PO HS 02/10/18 [Last Taken 03/30/18] buPROPion SR [Wellbutrin 150mg SR (*)] 150 mg PO DAILY 02/10/18 [Last Taken ] - NPO status NPO Since - Liquids (Date): 03/30/18 NPO Since - Liquids (Time): 20:30 NPO Since - Solids (Date): 03/30/18 NPO Since - Solids (Time): 14:30 - Smoking Hx Smoking Status: Never smoked - Family Anes Hx Family Hx Anesthesia Complications: denies ANE Labs/Vital Signs - Vital Signs Blood Pressure: 161/100 Heart Rate: 78 Respiratory Rate: 14 O2 Sat (%): 96 Height: 173.99 cm Weight: 55.338 kg ANE Physical Exam - Airway Neck exam: FROM Mallampati Score: Class 2 Mouth exam: normal dental/mouth exam - Pulmonary Pulmonary: no respiratory distress - Cardiovascular Cardiovascular: regular rate and rhythym - ASA Status ASA Status: II ANE Anesthesia Plan Anesthesia Plan: general endotracheal anesthesia
[2018-03-31] MEDS ORDERED: LABETALOL HCL 20 MG/4 ML INJ IVP PRN (08:50)
[2018-03-31] MEDS ORDERED: ALBUTEROL 3 ML DEYVIAL IH PRN (08:50)
[2018-03-31] MEDS ORDERED: LR 500 ML IV PRN (08:50)
[2018-03-31] MEDS ORDERED: NALOXONE HCL 0.4 MG/ML INJ IVP PRN (08:50)
[2018-03-31] MEDS ORDERED: PROMETHAZINE HCL 25 MG/ML INJ IVP PRN (08:50)
[2018-03-31] MEDS ORDERED: DEXAMETHASONE 4 MG/ML VIAL IVP PRN (08:50)
[2018-03-31] MEDS ORDERED: HYDROCODONE/APAP 5/325 TAB PO PRN (10:19)
--- NOTE | 2018-03-31 10:40 | POSTOPPROG ---
Post Op Note Date of Operation: 03/31/18 Surgeon: Jory Gonzalez Newborn Hearing Screener: Camille Renee PA-C Anesthesiologist: Dr. Kapoor Anesthesia: GET(General Endotracheal) Pre-op Diagnosis: Parkinson's Post-op Diagnosis: Parkinson's Procedure: Bilateral DBS generator implant Inf/Abcess present in the surg proc area at time of surgery?: No Depth: Superfical (Skin SQ) EBL: Minimal Plan Plan: 67 yo female s/p bilateral DBS generator implant - pain control - advance diet - dc home today Patient seen in recovery Awake. Alert. Following commands Muscle strength full
[2018-03-31] MEDS: fentaNYL 100 MCG/2 ML INJ IVP PRN ×5 (10:47→11:52)
[2018-03-31] MEDS ORDERED: oxyCODONE IR 5 MG TAB ONE ×2 (11:36→14:20)
[2018-03-31] MEDS: oxyCODONE IR 5 MG TAB PO PRN ×2 (11:38→14:22)
[2018-03-31 14:26] VITALS: BP 174/98
--- NOTE | 2018-03-31 14:32 | POSTANESTH ---
Post Anesthetic Evaluation Cardiovascular Status: Normal, Stable Respiratory Status: Normal, Stable Level of Consciousness/Mental Status: Can Participate in Eval Pain Control: Adequate, Prn Tx Ordered Nausea/Vomiting Control: Adequate, Prn Tx Ordered Complications Possibly Related to Anesthesia: None Noted
== END 2018-03-31 14:50 | disposition home or self-care (01) ==
LOC: FSGY 06:45
PROVIDERS: ATTEND Neurological Surgery
PROC: 0JH60DZ Insertion of Multiple Array Stimulator Generator into Chest Subcutaneous Tissue and Fascia, Open Approach (ICD-10-PCS; principal; 2018-03-31 08:30)
DX: G20 Parkinson's disease (principal); F32.9 Major depressive disorder, single episode, unspecified; K59.09 Other constipation; M81.0 Age-related osteoporosis without current pathological fracture
CPT/HCPCS: C1767; C1787; J0690; J1580; J2250; J2270; J2704; J3010